=== PATIENT | female | born 1955 | race Caucasian/White ===

== ENCOUNTER 2022-09-17 21:04 | Emergency (ER) | payer MEDICARE, SELFPAY ==
[2022-09-17 21:08] VITALS: BP 167/87; PULSE 91; RESP 18; TEMP 36.6; O2SAT 98; BMI 25.5
[2022-09-17] MEDS: DIPHENHYDRAMINE HCL 50 MG/ML (1ML) VIAL 12.5 MG IV (21:40)
[2022-09-17] MEDS: METHYLPREDNISOLONE SOD SUCC PF 125 MG/2 ML VIAL IVP (21:40)
[2022-09-17] MEDS: FAMOTIDINE/PF 20 MG/2 ML VIAL IV (21:41)
[2022-09-17] MEDS: ONDANSETRON PF 4 MG/2 ML VIAL IV (23:02)
[2022-09-17 23:16] LABS: Internal Control Within Normal Limits; Strep A Antigen Screen Negative
--- NOTE | 2022-09-18 03:19 | ED.ALLEREA1 ---
HPI - Allergic Reaction General Chief complaint: Allergic Reaction Stated complaint: ALLERGIC REACTION THROAT SWELLING Time Seen by Provider: 09/17/22 21:30 Source: patient Mode of arrival: walk-in Limitations: no limitations History of Present Illness HPI narrative: The patient is coming to the Emergency Room was complaining of left sided tongue swelling and sore throat that has been going on since few hours, she was just started on Bactrim by her primary care doctor for urinary tract infection treatment, she was also complaining of nausea and she mentioned that she had no abdominal pain but she had cataract surgery almost 3 days ago The patient had no rash no difficulty swallowing and no other complaint Related Data Previous Rx's Medication Instructions Recorded famotidine 20 mg tablet (Pepcid) 20 mg PO BID #10 tabs 09/17/22 nitrofurantoin 100 mg PO BID 5 days #10 caps 09/17/22 monohydrate/macrocrystals 100 mg capsule (Macrobid) Allergies Allergy/AdvReac Type Severity Reaction Status Date / Time sulfamethoxazole Allergy Intermediate Verified 09/17/22 21:13 [From Bactrim] trimethoprim [From Bactrim] Allergy Intermediate Verified 09/17/22 21:13 Review of Systems ROS Status of ROS 10 or more systems reviewed and unremarkable except as noted in history and below Exam Narrative Exam Narrative: Nurses notes and vital signs reviewed and patient is not hypoxic. General: Well-appearing and in no apparent distress. Skin: Warm, dry, no pallor noted. No rash. Head: Normocephalic, atraumatic. Neck: Supple, non-tender. Eye: Pupils are equal, round and EOMI. No scleral icterus. Ears, Nose, Mouth, and Throat: TM are clear, no nasal mucosal hypertrophy. Oral mucosa is moist, no posterior oropharynx erythema, uvula is mid-line Cardiovascular: Regular Rate and Rhythm without murmur, gallop or rub. Respiratory: No accessory muscle use or respiratory distress. Lungs are clear to auscultation, no wheezing, rales or rhonchi Chest Wall: no tenderness Back: No midline thoracic or lumbar vertebral tenderness. No CVA tenderness Musculoskeletal: normal ROM, no calf or popliteal tenderness, no lower extremity edema/swelling GI: Abdomen is soft, non-distended. Normal bowel sounds. No masses appreciated. No tenderness to palpation. No rebound, guarding, or rigidity noted. Neurological: A&O x4. No cranial nerve dysfunction observed. No truncal ataxia. Moves all extremities. Sensation intact. Psychiatric: Cooperative and interactive. Normal mood and affect. Constitutional Vital Signs, click to edit/add: Last Vital Signs Temp 98 F 09/17/22 21:08 Pulse 91 H 09/17/22 21:08 Resp 18 09/17/22 21:08 BP 167/87 H 09/17/22 21:08 Pulse Ox 98 09/17/22 21:08 O2 Del Method Room Air 09/17/22 21:08 Course Vital Signs Vital signs: Vital Signs Temperature 98 F 09/17/22 21:08 Pulse Rate 91 H 09/17/22 21:08 Respiratory Rate 18 09/17/22 21:08 Blood Pressure 167/87 H 09/17/22 21:08 Pulse Oximetry 98 09/17/22 21:08 Oxygen Delivery Method Room Air 09/17/22 21:08 Temperature 98 F 09/17/22 21:08 Pulse Rate 91 H 09/17/22 21:08 Respiratory Rate 18 09/17/22 21:08 Blood Pressure 167/87 H 09/17/22 21:08 Pulse Oximetry 98 09/17/22 21:08 Oxygen Delivery Method Room Air 09/17/22 21:08 MDM - Allergic Reaction MDM Narrative Medical decision making narrative: The patient examination with sore throat and the fact that the physical exam showed no swelling , but the patient Bactrim was changed to Macrobid She was monitored in the Emergency Room for a few hours during which she had no progression of her symptoms She was treated with Pepcid Protonix and Solumderol 1 dose The patient Strep test was negative she was instructed to monitor her symptoms as she could be also having an upper psychiatric infection The patient is to followup with primary care physician in next 2-3 days or to return to the emergency department should any of the signs or symptoms worsen or new symptoms develop. The patient agrees with the following Diagnosis and Treatment plan and the patient will be discharged home. Lab Data Labs: Lab Results 09/17/22 Range/Units 22:57 Streptococcus Screen Negative Discharge Plan Discharge Chief Complaint: Allergic Reaction Clinical Impression: Allergic reaction, Acute sore throat Patient Disposition: Home, Self-Care Time of Disposition Decision: 23:29 Condition: Good Mode of Transportation: Private Vehicle Prescriptions / Home Meds: New nitrofurantoin monohyd/m-cryst [Macrobid] 100 mg capsule 100 mg PO BID 5 Days Qty: 10 0RF Rx Instructions: must administer with a meal/food famotidine [Pepcid] 20 mg tablet 20 mg PO BID Qty: 10 0RF Instructions: Allergies (ED) Stand Alone Forms: Portal Instructions Referrals: Physician,Non-Staff, MD [Primary Care Provider] - 1 week Discharge Date/Time: 09/17/22 23:44
== END 2022-09-17 23:44 | disposition home or self-care (01) ==
PROVIDERS: Emergency Provider Emergency Medicine
DX: J02.9 Acute pharyngitis, unspecified (principal); T36.8X5A Adverse effect of other systemic antibiotics, initial encounter; Z87.440 Personal history of urinary (tract) infections
CPT/HCPCS: 87070; 87880; 96374; 96375; 99284; J2930

== ENCOUNTER 2024-05-17 18:07 | Emergency (ER) | payer MEDICARE, SELFPAY ==
[2024-05-17] VITALS (17 sets, daily range): BP systolic 152–158; BP diastolic 78–92; PULSE 61–72; TEMP 36.5; O2SAT 98–100; BMI 25.7
--- NOTE | 2024-05-17 18:12 | ECG_ITS ---
[facility] Test Date: 2024-05-17 Pat Name: JOSEPH DUNCAN Department: Room: - Gender: Female [employer]: : 1955 Requested By: Order Number: [id number] Reading MD: SEVERO DE LEON M.D. Measurements Intervals [place] Rate: 69 P: 56 ND: 144 QRS: 31 QRSD: 96 T: 71 QT: 422 QTc: 440 Interpretive Statements 1100 Sinus rhythm 4068 Nonspecific Twave abnormality Abnormal ECG No previous ECG available for comparison Electronically Signed On 05-17-2024 20:53:49 EDT by SEVERO DE LEON M.D.
--- NOTE | 2024-05-17 18:19 | ED.GENADUL1 ---
HPI HPI - General Adult General Chief complaint: Nausea/Vomiting/Diarrhea Stated complaint: N/V, DIZZINESS Time Seen by Provider: 05/17/24 18:12 Source: patient Mode of arrival: ambulance Limitations: no limitations History of Present Illness HPI narrative: Patient is a 68-year-old female who presents to the emergency department for a 6-day history of headaches, dizziness, right ear pressure. She reports associated vomiting and diarrhea with abdominal cramping. She was seen by her doctor last week who prescribed an antibiotic for right ear infection. She called EMS today because she was unable to open her eyes or transfer without feeling profoundly dizzy and nauseous. She states she had seen an dermatology technician in the past that did not believe that her right ear pressure was contributing to her vertigo but rather M?ni?re's disease. She is not currently on any medications for this. She denies fevers, chest pain, shortness of breath. No peripheral paresthesias. EMS gave IV fluids, Zofran and Toradol for abdominal cramping. Related Data Home Medications ?Medication ?Instructions ?Recorded ?Confirmed bupropion HCl 100 mg tablet 100 mg PO BID 05/17/24 05/17/24 levofloxacin 750 mg tablet 750 mg PO QDAY 05/17/24 05/17/24 prednisone 50 mg tablet 50 mg PO QDAY 05/17/24 05/17/24 Previous Rx's ?Medication ?Instructions ?Recorded meclizine 25 mg chewable tablet 25 mg PO QID PRN dizziness #12 tabs 05/17/24 (Antivert) ondansetron 4 mg disintegrating 4 mg PO Q6H PRN nausea and 05/17/24 tablet vomiting #12 tabs Allergies Allergy/AdvReac Type Severity Reaction Status Date / Time No Known Drug Allergies Allergy Verified 05/17/24 18:16 Opioid HPI Opioid Management Most Recent Opioid Data: Last Pain Scale 9 05/17/24 20:26 05/17/24 Last ED Pain Assessment 05/17/24 18:30 Review of Systems ROS Constitutional Denies: fever or chills Ears, nose, mouth, and throat Reports: ear pain; Denies: throat pain or nasal congestion Cardiovascular Denies: chest pain Respiratory Reports: cough; Denies: shortness of breath Gastrointestinal Reports: abdominal pain, nausea, vomiting and diarrhea Musculoskeletal Denies: back pain or neck pain Integumentary/Breast Denies: rash Neurological Reports: headache and dizziness; Denies: numbness in extremities or weakness in extremities Hematologic/Lymphatic Denies: easy bruising or easy bleeding PFSH PFS Social History Little interest or pleasure in doing things: not at all Feeling down, depressed, or hopeless: not at all Exam Narrative Exam Narrative: Gen.: Awake, alert, in no distress, resting with her eyes closed Head: Normocephalic, atraumatic ENT: Moist mucous membranes, right TM is bulging and clear, no serous otitis noted. No erythema or injection Respiratory: No respiratory distress, lungs clear bilaterally Cardio: Regular rate and rhythm Gastrointestinal: Abdomen is soft, nondistended and nontender to palpation Extremities: Moves extremities equally Psych: Normal mood and affect Neuro: No focal neuro deficit Skin: Warm, dry, intact Constitutional Vital Signs, click to edit/add: Last Vital Signs Temp 97.7 F 05/17/24 18:09 Pulse 64 05/17/24 20:30 Resp 11 L 05/17/24 20:30 BP 158/92 H 05/17/24 18:09 Pulse Ox 98 05/17/24 20:30 O2 Del Method Room Air 05/17/24 18:30 Course Vital Signs Vital signs: Vital Signs Temperature 97.7 F 05/17/24 18:09 Pulse Rate 68 05/17/24 18:09 Respiratory Rate 18 05/17/24 18:09 Blood Pressure 158/92 H 05/17/24 18:09 Pulse Oximetry 100 05/17/24 18:09 Oxygen Delivery Method Room Air 05/17/24 18:09 Temperature 97.7 F 05/17/24 18:09 Pulse Rate 64 05/17/24 20:30 Respiratory Rate 11 L 05/17/24 20:30 Blood Pressure 158/92 H 05/17/24 18:09 Pulse Oximetry 98 05/17/24 20:30 Oxygen Delivery Method Room Air 05/17/24 18:30 Medical Decision Making MDM Narrative Medical decision making narrative: CT of the brain is unremarkable, patient's abdomen is soft and benign. CT of the abdomen pelvis shows no evidence of acute process however appendix is upper limit of normal. She has no right lower quadrant tenderness. She has had vomiting and diarrhea with abdominal cramping for approximately 6 days. She was treated with IV fluids, additional Zofran, Antivert, magnesium, Phenergan. She had no episodes of emesis in the ER. She was able to ambulate to the bathroom. She requested medication for headache and was given Tylenol. She was reevaluated by attending physician. She is hemodynamically stable in no distress and able to ambulate with no focal neurodeficits or pain in the abdomen on reevaluation. She is discharged home with Antivert and Zofran to follow-up with PCP. Patient and family comfortable with treatment plan. Return to the ER if symptoms change or worsen SHARED APC VISIT, PHYSICIAN ATTESTATION: [id number] I performed a substantive part of the MDM during the patient?s E/M visit. I personally evaluated and examined the patient. I personally made or approved the documented management plan and acknowledge its risk of complications. Medical Records Medical records reviewed: Yes I reviewed the patient's medical records Lab Data Lab results reviewed: Yes I reviewed the patient's lab results Labs: Lab Results 05/17/24 05/17/24 05/17/24 Range/Units 18:25 19:05 19:44 WBC 7.7 (4.0-11.0) 10^3/uL RBC 3.86 L (4.20-5.40) 10^6/uL Hgb 12.9 (12.0-16.0) g/dL Hct 37.3 (36.0-48.0) % MCV 96.6 (81.0-99.0) fL MCH 33.4 (26.7-34.0) pg MCHC 34.6 (29.9-35.2) g/dL RDW 12.1 (11.0-15.0) % Plt Count 322 (150-450) 10^3/uL MPV 9.3 L (9.5-13.5) fL Neut % (Auto) 85.7 H (43.0-75.0) % Lymph % (Auto) 9.9 L (20.5-60.0) % [place] % (Auto) 3.9 (1.7-12.0) % Eos % (Auto) 0.0 L (0.9-7.0) % Baso % (Auto) 0.1 L (0.2-2.0) % Neut # (Auto) 6.6 H (1.4-6.5) 10^3/uL Lymph # (Auto) 0.8 L (1.2-3.8) 10^3/uL [place] # (Auto) 0.3 (0.3-0.8) 10^3/uL Eos # (Auto) 0.0 (0.0-0.7) 10^3/uL Baso # (Auto) 0.0 (0.0-0.1) 10^3/uL Abs Immat Gran (auto) 0.03 (0.00-0.03) 10^3/uL Imm/Tot Granulo (auto) 0.4 (0.0-0.5) % PT 11.8 H (9.0-11.6) sec INR 1.13 Sodium 140 (136-145) mmol/L Potassium 3.8 (3.5-5.1) mmol/L Chloride 103 (98-107) mmol/L Carbon Dioxide 20.4 L (21.0-32.0) mmol/L Anion Gap 20.4 BUN 16.0 (7.0-18.0) mg/dL Creatinine 0.88 (0.55-1.02) mg/dL Est GFR ( Amer) >60 (>=60 mL/min/1.73m^2) Est GFR (Non-Af Amer) >60 (>=60 mL/min/1.73m^2) BUN/Creatinine Ratio 18.2 Glucose 130 H (74-106) mg/dL Lactate 2.7 H* 1.7 (0.4-2.0) mmol/L Calcium 8.7 (8.5-10.1) mg/dL Magnesium 1.6 L (1.8-2.4) mg/dL Total Bilirubin 0.5 (0.2-1.0) mg/dL AST 15 (15-37) U/L ALT 26 (14-59) U/L Alkaline Phosphatase 78 (46-116) U/L Troponin I High Sens 5.8 (4.0-51.3) pg/mL Total Protein 6.9 (6.4-8.2) g/dL Albumin 3.5 (3.4-5.0) g/dL Globulin 3.4 g/dL Albumin/Globulin Ratio 1.0 Lipase 31.0 (16.0-77.0) U/L TSH 0.983 (0.358-3.740) uIU/mL Urine Color Lt. yellow (YELLOW) Urine Clarity Clear (CLEAR) Urine pH 8.0 (5.0-9.0) Ur Specific [place] 1.025 (1.005-1.025) Urine Protein Negative (NEG/TRACE) mg/dL Urine Glucose (UA) Negative (NEGATIVE) mg/dL Urine Ketones >=80 A (NEGATIVE) mg/dL Urine Occult Blood Negative (NEGATIVE) Urine Nitrite Negative (NEGATIVE) Urine Bilirubin Negative (NEGATIVE) Urine Urobilinogen 0.2 (0.2-1.0) EU/dL Ur Leukocyte Esterase Negative (NEGATIVE) Urine RBC 0-2 (0-2) #/HPF Urine WBC 0-2 A (NONE SEEN) #/HPF Ur Squamous Epith Cells Rare (NONE/RARE) #/LPF Urine Crystals None seen (None Seen) #/HPF Urine Bacteria None seen (NONE SEEN) #/HPF Urine Casts None seen (NONE SEEN) #/LPF Urine Mucus None seen (NONE SEEN) Imaging Data CT scan - head: Attestation: I have reviewed the pertinent imaging results. ECG Data Attestation: I personally reviewed and interpreted this ECG as follows: (Normal sinus rhythm at a rate of [address] elevation or ectopy. EKG reviewed by attending physician) Discharge Plan Discharge Chief Complaint: Nausea/Vomiting/Diarrhea Clinical Impression: Dizziness, Dehydration, Nausea & vomiting Patient Disposition: Home, Self-Care Time of Disposition Decision: 20:38 Condition: Good Prescriptions / Home Meds: New ondansetron 4 mg tablet,disintegrating 4 mg PO Q6H PRN (Reason: nausea and vomiting) Qty: 12 0RF meclizine [Antivert] 25 mg tablet,chewable 25 mg PO QID PRN (Reason: dizziness) Qty: 12 0RF No Action bupropion HCl 100 mg tablet 100 mg PO BID levofloxacin 750 mg tablet 750 mg PO QDAY prednisone 50 mg tablet 50 mg PO QDAY Print Language: Slovak Instructions: Acute Nausea and Vomiting (ED), Dizziness (ED) Referrals: Physician,Non-Staff, MD [Physician] - 1 week
[2024-05-17 18:30] LABS: Basophils Percent Auto 0.1 % (0.2-2.0); Hematocrit 37.3 % (36.0-48.0); Hemoglobin 12.9 g/dL (12.0-16.0); Immature Granulocytes Abs Auto 0.03 10^3/uL (0.00-0.03); Immature Granulocytes Pct Auto 0.4 % (0.0-0.5); Lymphocytes Absolute Auto 0.8 10^3/uL (1.2-3.8); Lymphocytes Percent Auto 9.9 % (20.5-60.0); Mean Corpuscular HGB Conc 34.6 g/dL (29.9-35.2); Mean Corpuscular Hemoglobin 33.4 pg (26.7-34.0); Mean Corpuscular Volume 96.6 fL (81.0-99.0); Mean Platelet Volume 9.3 fL (9.5-13.5); Monocytes Absolute Auto 0.3 10^3/uL (0.3-0.8); Monocytes Percent Auto 3.9 % (1.7-12.0); Neutrophils Absolute Auto 6.6 10^3/uL (1.4-6.5); Neutrophils Percent Auto 85.7 % (43.0-75.0); Platelet Count 322 10^3/uL (150-450); Red Blood Count 3.86 10^6/uL (4.20-5.40); Red Cell Distribution Width 12.1 % (11.0-15.0); White Blood Count 7.7 10^3/uL (4.0-11.0)
[2024-05-17] MEDS: ONDANSETRON PF 4 MG/2 ML VIAL IV (18:32)
[2024-05-17 18:42] LABS: INR 1.13; Prothrombin Time 11.8 sec (9.0-11.6)
[2024-05-17 18:44] LABS: Alanine Aminotransferase 26 U/L (14-59); Albumin Level 3.5 g/dL (3.4-5.0); Alkaline Phosphatase 78 U/L (46-116); Anion Gap 20.4; Aspartate Amino Transferase 15 U/L (15-37); BUN Creatinine Ratio 18.2; Bilirubin Total 0.5 mg/dL (0.2-1.0); Calcium 8.7 mg/dL (8.5-10.1); Carbon Dioxide 20.4 mmol/L (21.0-32.0); Chloride 103 mmol/L (98-107); Estimated GFR (African America >60 (>=60 mL/min/1.73m^2); Estimated GFR (Non-African Ame >60 (>=60 mL/min/1.73m^2); Globulin 3.4 g/dL; Glucose 130 mg/dL (74-106); Potassium 3.8 mmol/L (3.5-5.1); Sodium 140 mmol/L (136-145); Total Protein 6.9 g/dL (6.4-8.2)
[2024-05-17 18:53] LABS: Magnesium 1.6 mg/dL (1.8-2.4); Thyroid Stimulating Hormone 0.983 uIU/mL (0.358-3.740); Troponin I High Sensitivity 5.8 pg/mL (4.0-51.3)
[2024-05-17 18:54] LABS: Lactate/Lactic Acid 2.7 mmol/L (0.4-2.0)
[2024-05-17] MEDS: MECLIZINE HCL 12.5 MG TABLET 25 MG PO (19:16)
[2024-05-17] MEDS: MAGNESIUM SULFATE IN WATER 2 GM/50 ML PREMIX IV (19:19)
[2024-05-17 19:25] LABS: Bilirubin Urine NEGATIVE (NEGATIVE); Blood Urine NEGATIVE (NEGATIVE); Clarity Urine CLEAR (CLEAR); Color Urine LT. YELLOW (YELLOW); Glucose Urine UA NEGATIVE (NEGATIVE); Ketones Urine >=80 mg/dL (NEGATIVE); Leukocyte Esterase Urine NEGATIVE (NEGATIVE); Nitrite Urine NEGATIVE (NEGATIVE); Protein Urine NEGATIVE (NEG/TRACE); Specific Gravity Urine 1.025 (1.005-1.025); Urobilinogen Urine 0.2 EU/dL (0.2-1.0)
[2024-05-17 19:39] LABS: Bacteria Urine NONE SEEN #/HPF (NONE SEEN); Cast Seen? NONE SEEN #/LPF (NONE SEEN); Crystals Seen? None Seen #/HPF (None Seen); Mucus Urine NONE SEEN (NONE SEEN); RBC Urine 0-2 #/HPF (0-2); Squamous Epithelial Cell Urine RARE #/LPF (NONE/RARE); WBC Urine 0-2 #/HPF (NONE SEEN)
[2024-05-17] MEDS: PROMETHAZINE HCL 12.5 MG in 0.9 % SODIUM CHLORIDE 50 ML 202 MG IV (20:07)
[2024-05-17 20:11] LABS: Lactate/Lactic Acid 1.7 mmol/L (0.4-2.0)
[2024-05-17] MEDS: ACETAMINOPHEN 325 MG TABLET 650 MG PO (20:26)
== END 2024-05-17 21:00 | disposition home or self-care (01) ==
PROVIDERS: Physician Assistant; Emergency Provider Emergency Medicine; PCP Family Medicine
DX: E86.0 Dehydration (principal); R42 Dizziness and giddiness; R51.9 Headache, unspecified; R11.2 Nausea with vomiting, unspecified; R10.9 Unspecified abdominal pain; R19.7 Diarrhea, unspecified
CPT/HCPCS: 36415; 70450; 74176; 80053; 81001; 83605; 83690; 83735; 84443; 84484; 85025; 85610; 93005; 96365; 96368; 96375; 99285; J2405; J2550; J3475